=== PATIENT | male | born 1955 | race Caucasian/White ===

== ENCOUNTER 2024-04-01 13:10 | Outpatient (CLI) | payer MEDICARE, MEDICAID | END 2024-04-01 23:59 | disposition home or self-care (01) | LOC: CARD DIAG 13:10 | PROVIDERS: ATTEND Family Medicine | DX: I08.0 Rheumatic disorders of both mitral and aortic valves (principal); R01.1 Cardiac murmur, unspecified | CPT/HCPCS: 93306 ==